=== PATIENT | male | born 1995 | race Two or more races ===

== ENCOUNTER 2016-08-05 18:40 | Emergency (ER) | payer OTHER ==
[2016-08-05 18:46] VITALS: RESP 20
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
[2016-08-05 20:11] VITALS: BP 144/70; PULSE 87; TEMP 98
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
[2016-08-05 21:40] VITALS: O2SAT 99
== END 2016-08-05 21:55 | disposition home or self-care (01) ==
LOC: C.ER 18:40
DX: S40.012A Contusion of left shoulder, initial encounter (principal); X58.XXXA Exposure to other specified factors, initial encounter; Y93.75 Activity, martial arts